=== PATIENT | male | born 1990 | race African-American/Black ===

== ENCOUNTER → 2021-04-18 | Outpatient (CLI) | payer OTHER ==
--- NOTE | 2021-04-18 13:41 | KCIC ---
EXAM: Right wrist, 3 views. HISTORY: Hyperextension. Fall. COMPARISON: None. FINDINGS: 3 views of the right wrist are obtained. There is a suspected surgical anchor within the sc aphoid. There are tiny radiodense foreign bodies along the dorsal aspect of the wrist. There is a tin y joint loose body lateral to the lunate which may be a chronic nonunited fracture fragment. There is a suspected bone island within the distal radial metaphysis. IMPRESSION: 1. No acute osseous finding. 2. Postoperative changes involving the scaphoid and tiny radiodense foreign bodies overlying the dors al wrist soft tissues. 3. Tiny suspected nonunited fracture fragment adjacent to the lunate. Electronically signed by: Dory Josue MD (04/18/2021 1:39 PM) [id number]
== END ==
LOC: KCIC 13:05
PROVIDERS: ATTEND Physician Assistant Medical
DX: S69.91XD Unspecified injury of right wrist, hand and finger(s), subsequent encounter (principal); W19.XXXD Unspecified fall, subsequent encounter
CPT/HCPCS: 73110

== ENCOUNTER → 2021-07-31 | Outpatient (CLI) | payer OTHER ==
--- NOTE | 2021-07-31 16:07 | KCIC ---
EXAMINATION: MRI RIGHT UPPER EXTREMITY JOINT WITHOUT CONTRAST INDICATIONS: Previous right wrist injury and surgery. New injury after a fall 4 months ago. Pain acr oss posterior carpals. Weakness TECHNIQUE: Multiplanar multisequence MRI of the right wrist was obtained without contrast. COMPARISON: Right wrist radiograph 11/16/2020 FINDINGS: BONES AND CARTILAGE: No acute fracture. There is a suture anchor in the proximal pole of the scaphoid with adjacent susceptibility artifact. The scapholunate ligament is irregular in appearance. There a re cystic changes in the triquetrum at the lunotriquetral joint. Small cysts in the distal pole of sc aphoid. Tiny osteophytes at the triscaphe the joint. There is focal marrow edema in the posterior asp ect of the capitate with overlying soft tissue edema. There is a chronic-appearing osseous fragment a long the dorsum of the triquetrum, likely an old triquetral avulsion fracture. Mild chronic osseous i rregularity along the dorsum of the lunate and scaphoid, which could be sequela of old injuries. Ther e are small foci of susceptibility in the radiocarpal joint, mildly limiting evaluation. No discrete cartilage defect. LIGAMENTS: Suture anchor in the proximal pole of scaphoid. The scapholunate and lunotriquetral ligame nts are irregular in appearance but not well evaluated on on arthrogram exam. Triangular fibrocartila ge complex is grossly intact. TENDONS: Flexor and extensor tendons are intact. No tenosynovitis. OTHER: Median and ulnar nerves are intact. Muscles are unremarkable. IMPRESSION: 1. There is focal marrow edema in the posterior capitate with overlying soft tissue edema. This could be a contusion or degenerative. There is chronic appearing irregularity or small ossicles along the dorsal triquetrum, lunate, and scaphoid, which may be sequela of old injury 2. Sequela of prior arthroscopy with foci of susceptibility in the radioscaphoid joint. Suture anchor in the proximal scaphoid. Electronically signed by: Rachelle Huff MD (07/31/2021 4:04 PM) [id number]
== END ==
LOC: KCIC MRI 08:23
PROVIDERS: ATTEND Physician Assistant Medical
DX: S69.91XD Unspecified injury of right wrist, hand and finger(s), subsequent encounter (principal); M25.531 Pain in right wrist; X58.XXXD Exposure to other specified factors, subsequent encounter
CPT/HCPCS: 73221